=== PATIENT | male | born 1945 | race Native Hawaiian/Other Pacific Islander ===

== ENCOUNTER 2016-12-15 07:12 | Day surgery (SDC) | payer OTHER | END 2016-12-15 09:42 | disposition home or self-care (01) | LOC: OR 07:12 | DX: H25.812 Combined forms of age-related cataract, left eye (principal); Z53.8 Procedure and treatment not carried out for other reasons | CPT/HCPCS: J0171 ==

== ENCOUNTER 2017-01-05 06:56 | Day surgery (SDC) | payer OTHER | END 2017-01-05 08:55 | disposition home or self-care (01) | LOC: OR 06:56 | PROC: 08RK3JZ Replacement of Left Lens with Synthetic Substitute, Percutaneous Approach (ICD-10-PCS; principal; 2017-01-05) | DX: H25.812 Combined forms of age-related cataract, left eye (principal) | CPT/HCPCS: 66984; J0171; V2632 ==